=== PATIENT | female | born 1985 | race Caucasian/White ===

== ENCOUNTER → 2023-06-11 13:00 | Outpatient (BNVA) | payer BC, SELFPAY | PROVIDERS: Visit Provider Obstetrics & Gynecology | DX: Z12.4 Encounter for screening for malignant neoplasm of cervix (principal) | CPT/HCPCS: 87624 ==

== ENCOUNTER → 2023-07-04 08:44 | Outpatient (BNVA) | payer BC, SELFPAY | PROVIDERS: Visit Provider Obstetrics & Gynecology | DX: D17.9 Benign lipomatous neoplasm, unspecified (principal) | CPT/HCPCS: 88305 ==